=== PATIENT | male | born 1950 | race African-American/Black ===

== ENCOUNTER 2019-07-05 07:43 | Emergency (ER) | payer OTHER ==
[~2019-07-05] VITALS: Ht 175.3 cm; Wt 77.1 kg
[2019-07-05 08:37] LABS: ABSOLUTE NEUTROPHILS 6.1 thou/uL (1.4-8.2); BASOPHILS 0.4 % (0.0-2.0); EOSINOPHILS 7.8 % (0.0-3.0); HEMATOCRIT 33.2 % (42.0-52.0); HEMOGLOBIN 10.9 gm/dL (14.0-18.0); LYMPHOCYTES 11.5 % (24.0-44.0); MCH 31.3 pg (26.0-34.0); MCHC 32.9 g/dL (28.0-37.0); MCV 95.1 fL (80.0-100.0); MONOCYTES 6.3 % (1.0-8.0); PLATELET COUNT 141 thou/uL (150-400); RBC 3.49 mil/uL (4.50-6.00); WBC 8.3 thou/uL (4.0-11.0)
[2019-07-05 08:40] LABS: CALCIUM 9.1 mg/dL (8.5-10.1); CREATININE 5.3 mg/dL (0.7-1.3); MAGNESIUM 1.9 mg/dL (1.8-2.4)
[2019-07-05 08:41] LABS: POTASSIUM 4.2 mmol/L (3.5-5.1)
[2019-07-05] MEDS ORDERED: LIPITOR80 MG PO (09:36)
[2019-07-05] MEDS ORDERED: COMBIGAN EYE DR10 ML OPHTHALMIC (09:36)
[2019-07-05] MEDS ORDERED: TYLENOL325 MG PO (09:36)
[2019-07-05] MEDS ORDERED: COREG6.25 MG PO (09:36)
[2019-07-05] MEDS ORDERED: B12INJ PER TUBE (09:37)
[2019-07-05] MEDS ORDERED: ELIQUIS5 MG PER TUBE (09:38)
[2019-07-05] MEDS ORDERED: LEXAPRO 10 MG T10 M1 PER TUBE (09:38)
[2019-07-05] MEDS ORDERED: NEXIUM40 MG PER TUBE (09:39)
[2019-07-05] MEDS ORDERED: FOLIC ACID1 MG PER TUBE (09:39)
[2019-07-05] MEDS ORDERED: GLYCOPYRROLATE 22 M1 PER TUBE (09:39)
[2019-07-05] MEDS ORDERED: LUMIGAN2.5 M1 OP (09:40)
[2019-07-05] MEDS ORDERED: LEVEMIR100 UNIT/1 (09:40)
[2019-07-05] MEDS ORDERED: NOVOLOG100 UNIT/1 SUBQ (09:41)
[2019-07-05] MEDS ORDERED: SINEMET 25-1001 EAC1 PER TUBE (09:41)
[2019-07-05] MEDS ORDERED: VALPROIC ACID1 ML PER TUBE (09:42)
[2019-07-05 14:09] VITALS: BP 125/60
--- NOTE | 2019-07-07 13:25 | EKG ---
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
== END 2019-07-05 15:14 | disposition home or self-care (01) ==
LOC: ER 07:43
PROVIDERS: Emergency Medicine
DX: E11.649 Type 2 diabetes mellitus with hypoglycemia without coma (principal); I10 Essential (primary) hypertension; Z88.2 Allergy status to sulfonamides; Z88.6 Allergy status to analgesic agent; Z43.1 Encounter for attention to gastrostomy; Z86.73 Personal history of transient ischemic attack (TIA), and cerebral infarction without residual deficits; Z79.4 Long term (current) use of insulin

== ENCOUNTER 2019-07-16 08:10 | Emergency (ER) | payer OTHER ==
[~2019-07-16] VITALS: Ht 152.4 cm; Wt 76.2 kg
--- NOTE | ~2019-07-16 | EMS ---
[address] [address] EMS Patient Care Report Name: MARY ANN AGUIRRE Room #: REG LOUIE Cote#: [id number] Admission: 07/16/19 Attend Phys: Discharge: Date of : 48 Report #: [id number] THIS REPORT FOR: //name// Report Transmitted: 07/16/2019 07:31 EMS Care Summary [place], [place]/[facility] Incident [id number] @ 07/16/2019 07:28 Incident Location [id number] [place] [address] Patient MARY ANN AGUIRRE Male, 68 Years 1950 Patient Address [address] [place], [place] [id number] Patient History Congestive Heart Failure (CHF),Diabetes,Hypertension,Parkinson's Disease,Gastro-Esophageal Reflux Disease (GERD),End Stage Renal Disease (ESRD),Anemia, Patient Allergies Aspirin,Sulfa, Patient Medications Lumigan, Lexapro, Cyanocobalamin Co57, Eliquis, Tylenol, Carvedilol, Atorvastatin, Levemir, Chief Complaint HYPOGLYCEMIA Disposition Transported No Lights/[place] Dispatch Reason Unconscious/Fainting Transported To [facility] [address] [place] [address] EMS Patient Care Report Name: MARY ANN AGUIRRE Room #: REG LOUIE Cote#: [id number] Admission: 07/16/19 Attend Phys: Discharge: Date of : 48 Report #: [id number] M28 ARRIVES TO FIND 68 Y/O M PT, UNRESPONSIVE. ASSESSMENTS AND TREATMENTS NOTED. PT MOVED TO COT VIA DRAWSHEET METHOD. PT MOVED TO AMBULANCE. PT TRANSPORTED. M28 ARRIVES AT DESTINATION. PT MOVED TO ROOM IN ED. PT MOVED TO BED IN ROOM VIA DRAWSHEET METHOD. PT CARE TRANSFERRED. M28 RETURNS TO SERVICE. Initial Vitals @07:38P: 97,BP: 202/100,CO: 1,SpO2: 91, @PTAGlucose: 31, @07:36P: 100,R: 14,BP: 222/125,Pain: 0/10,GCS: 3,Glucose: 50,SpO2: 88,Revised Trauma: 8, @07:55P: 92,R: 16,BP: 119/76,Pain: 0/10,GCS: 7,Glucose: 101,CO: 5,SpO2: 98,Revised Trauma: 10, @08:01P: 87,R: 16,BP: 100/56,Pain: 0/10,GCS: 8,CO: 0,SpO2: 100,Revised Trauma: 10, @07:43P: 99,R: 16,BP: 194/98,Pain: 0/10,GCS: 3,CO: 0,SpO2: 100,Revised Trauma: 8, Assessments @07:36MENTAL:Unresponsive,SKIN:Diaphoresis,HEENT:LUNG SOUNDS:ABDOMEN:PELVIS//GI:EXTREMITIES:PULSE:NEURO:@07:46MENTAL:SKIN:No Abnormalities,HEENT:Head/Face: No Abnormalities,Eyes: No Abnormalities,Neck/Airway: No Abnormalities,LUNG SOUNDS:General: No Abnormalities,Left Upper: No Abnormalities,Right Upper: No Abnormalities,Left Lower: No Abnormalities,Right Lower: No Abnormalities,ABDOMEN:General: No Abnormalities,Left Upper: No Abnormalities,Right Upper: No Abnormalities,Left Lower: No Abnormalities,Right Lower: No Abnormalities,PELVIS//GI:No Abnormalities,EXTREMITIES:Left Arm: No Abnormalities,Right Arm: No Abnormalities,Left Leg: No Abnormalities,Right Leg: No Abnormalities,PULSE:NEURO:No Abnormalities, Impression Diabetic Hypoglycemia Procedures @07:36ALS AssessmentResponse: UnchangedSucceeded@07:43Dextrose 10% - 100 Milliliters (ml) - Intravenous (IV)Response: Improved@07:42Saline Lock 0cc (20 ga) Site: Forearm-LeftResponse: UnchangedSucceeded@07:40Saline Lock 0cc (18 ga) Site: Forearm-LeftResponse: UnchangedFailed@07:39Saline Lock 0cc (20 ga) Site: Forearm-LeftResponse: UnchangedFailed@07:39Oxygen FlowRate: 15 Device: Non Re-breather Mask (NRB) Response: ImprovedSucceeded Timeline PIPE LINE REPAIRER,BP: / M,PULSE: ,RR: R,SPO2: Ox,ETCO2: ,B,PAIN: ,GCS: , 07:26,Call Received 07:26,Dispatch Notified [address] [address] EMS Patient Care Report Name: MARY ANN AGUIRRE Room #: REG LOUIE Cote#: [id number] Admission: 07/16/19 Attend Phys: Discharge: Date of : 48 Report #: [id number] 07:28,Dispatched 07:29,En Route 07:32,On Scene 07:35,At Patient 07:36,ALS Assessment,Response: UnchangedSucceeded, 07:36,BP: 222/125 M,PULSE: 100,RR: 14 R,SPO2: 88 Ox,ETCO2: ,B,PAIN: 0,GCS: 3, 07:38,BP: 202/100 M,PULSE: 97,RR: R,SPO2: 91 Ox,ETCO2: ,BG: ,PAIN: ,GCS: , 07:39,Saline Lock 0cc 20 ga Site: Forearm-Left,Response: UnchangedFailed, 07:39,Oxygen FlowRate: 15 Device: Non Re-breather Mask (NRB) Response: ImprovedSucceeded, 07:40,Saline Lock 0cc 18 ga Site: Forearm-Left,Response: UnchangedFailed, 07:42,Saline Lock 0cc 20 ga Site: Forearm-Left,Response: UnchangedSucceeded, 07:43,Dextrose 10% - 100 Milliliters (ml) - Intravenous (IV),Response: Improved 07:43,BP: 194/98 M,PULSE: 99,RR: 16 R,SPO2: 100 Ox,ETCO2: ,BG: ,PAIN: 0,GCS: 3, 07:55,BP: 119/76 M,PULSE: 92,RR: 16 R,SPO2: 98 Ox,ETCO2: ,B,PAIN: 0,GCS: 7, 08:01,Depart Scene 08:01,BP: 100/56 M,PULSE: 87,RR: 16 R,SPO2: 100 Ox,ETCO2: ,BG: ,PAIN: 0,GCS: 8, 08:04,At Destination 08:15,Call Closed Disclaimer v1.1 Copyright 2019 [employer] This EMS Care Summary contains data elements from the applicable legal record (which may be displayed differently). It is designed to provide pertinent information for the following purposes: continuity of care, clinical quality, and state data reporting. The complete legal record is available to ED staff and administrators of the receiving hospital in [facility]s Patient Tracker. All data is provided "as is."
[~2019-07-16 08:10] MED LIST: B12INJ PER TUBE; COMBIGAN EYE DR10 ML OPHTHALMIC; COREG6.25 MG PO; ELIQUIS5 MG PER TUBE; FOLIC ACID1 MG PER TUBE; GLYCOPYRROLATE 22 M1 PER TUBE; LEVEMIR100 UNIT/1; LEXAPRO 10 MG T10 M1 PER TUBE; LIPITOR80 MG PO; LUMIGAN2.5 M1 OP; NEXIUM40 MG PER TUBE; NOVOLOG100 UNIT/1 SUBQ; SINEMET 25-1001 EAC1 PER TUBE; TYLENOL325 MG PO; VALPROIC ACID1 ML PER TUBE
[2019-07-16 08:29] LABS: BASOPHILS 0.2 % (0.0-2.0); EOSINOPHILS 6.4 % (0.0-3.0); HEMATOCRIT 31.8 % (42.0-52.0); HEMOGLOBIN 10.5 gm/dL (14.0-18.0); LYMPHOCYTES 7.7 % (24.0-44.0); MCH 30.9 pg (26.0-34.0); MCHC 33.1 g/dL (28.0-37.0); MCV 93.4 fL (80.0-100.0); MONOCYTES 4.4 % (1.0-8.0); PLATELET COUNT 143 thou/uL (150-400); POLYS 81.3 % (36.0-66.0); RDW 15.9 % (10.5-14.5); WBC 4.9 thou/uL (4.0-11.0)
[2019-07-16 08:34] LABS: ANION GAP 9 mmol/L (7-16); BUN 40 mg/dL (7-18); CHLORIDE 102 mmol/L (98-107); CO2 26 mmol/L (21-32); CREATININE 5.1 mg/dL (0.7-1.3); GLUCOSE 65 mg/dL (74-106); POTASSIUM 4.2 mmol/L (3.5-5.1); SODIUM 137 mmol/L (136-145)
[2019-07-16 08:43] LABS: TROPONIN-I <0.06 ng/mL (<0.06)
[2019-07-16 10:29] LABS: URINE BLOOD 3+ (Negative); URINE CLARITY SL CLOUDY; URINE GLUCOSE-RANDOM* NEGATIVE (Negative); URINE KETONES TRACE (Negative); URINE LEUKOCYTES-REFLEX TRACE (Negative); URINE NITRITE-REFLEX NEGATIVE (Negative); URINE PROTEIN (DIPSTICK) 2+ (Negative); URINE SPECIFIC GRAVITY 1.025 (1.005-1.035); URINE UROBILINOGEN 0.2 E.U./dl (0.2-1.0)
[2019-07-16 10:35] LABS: ICTOTEST (BILI CONFIRMATORY) Negative (Negative); URINE BILIRUBIN NEGATIVE (Negative); URINE COLOR DARK YELLOW
[2019-07-16 10:38] LABS: AMP/METHAMP Negative (Negative); BARBITURATES Negative (Negative); BENZODIAZEPINES Negative (Negative); COCAINE Negative (Negative); METHADONE Negative (Negative); OPIATES Negative (Negative); PCP Negative (Negative)
[2019-07-16 10:48] LABS: AMORPHOUS URATES Few /LPF (None Seen); BACTERIA-REFLEX 1-9 Few /HPF (None Seen); CASTS None Seen /LPF (None Seen); SQUAMOUS 0-3 Few /LPF (0-3); URINE WBC-REFLEX 0-5 Rare /HPF (0-5)
--- NOTE | 2019-07-16 13:32 | EKG ---
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
[2019-07-16 13:50] VITALS: BP 132/71
== END 2019-07-16 13:52 | disposition home or self-care (01) ==
LOC: ER 08:10
PROVIDERS: Emergency Medicine
DX: E16.2 Hypoglycemia, unspecified (principal); Z88.2 Allergy status to sulfonamides; Z88.8 Allergy status to other drugs, medicaments and biological substances

== ENCOUNTER 2019-12-04 22:52 | Emergency (ER) | payer OTHER ==
[~2019-12-04] VITALS: Ht 175.3 cm; Wt 77.1 kg
[2019-12-04 23:40] LABS: ABSOLUTE NEUTROPHILS 2.5 thou/uL (1.4-8.2); BASOPHILS 0.7 % (0.0-2.0); EOSINOPHILS 10.7 % (0.0-3.0); HEMATOCRIT 38.3 % (42.0-52.0); HEMOGLOBIN 12.4 gm/dL (14.0-18.0); LYMPHOCYTES 19.1 % (24.0-44.0); MCH 31.6 pg (26.0-34.0); MCHC 32.3 g/dL (28.0-37.0); MCV 97.8 fL (80.0-100.0); PLATELET COUNT 155 thou/uL (150-400); POLYS 62.5 % (36.0-66.0); RBC 3.91 mil/uL (4.50-6.00); RDW 15.3 % (10.5-14.5)
[2019-12-04 23:43] LABS: CALCIUM 8.6 mg/dL (8.5-10.1); CREATININE 11.7 mg/dL (0.7-1.3); POTASSIUM 4.7 mmol/L (3.5-5.1)
[2019-12-04 23:45] LABS: APTT 30.6 Seconds (24.5-32.8); INR 1.2
[2019-12-05] MEDS ORDERED: LEVEMIR100 UNIT/2 SUBQ (00:34)
[2019-12-05] MEDS ORDERED: LUMIGAN2.5 M1 OP (00:35)
[2019-12-05] MEDS ORDERED: RENVELA0.8 GM PO (00:36)
[2019-12-05 02:10] VITALS: BP 129/72
== END 2019-12-05 02:13 ==
LOC: ER 22:52
PROVIDERS: Emergency Medicine
DX: E11.649 Type 2 diabetes mellitus with hypoglycemia without coma (principal); N18.6 End stage renal disease; I12.0 Hypertensive chronic kidney disease with stage 5 chronic kidney disease or end stage renal disease; E11.22 Type 2 diabetes mellitus with diabetic chronic kidney disease; E78.5 Hyperlipidemia, unspecified; K21.9 Gastro-esophageal reflux disease without esophagitis; G20 Parkinson's disease; Z79.4 Long term (current) use of insulin; Z99.2 Dependence on renal dialysis; Z88.2 Allergy status to sulfonamides; Z88.6 Allergy status to analgesic agent; W05.0XXA Fall from non-moving wheelchair, initial encounter; Y93.89 Activity, other specified; Y92.098 Other place in other non-institutional residence as the place of occurrence of the external cause; Y99.8 Other external cause status

== ENCOUNTER 2020-06-09 16:38 | Inpatient (IN) | payer OTHER ==
[~2020-06-09] VITALS: Ht 172.7 cm; Wt 62.6 kg
[2020-06-09] VITALS (20 sets, daily range): BP systolic 67–140; BP diastolic 27–65
--- NOTE | ~2020-06-09 | EMS ---
[address] [address] EMS Patient Care Report Name: MARY ANN AGUIRRE Room #: 241-P ADM IN M.R.#: [id number] Admission: 06/09/20 Attend Phys: Tabatha Franz Discharge: Date of : 48 Report #: [id number] THIS REPORT FOR: //name// Report Transmitted: 06/10/2020 04:44 EMS Care Summary [place], [place]/[facility] Incident [id number] @ 06/09/2020 15:57 Incident Location [address] [place] [address] Patient MARY ANN AGUIRRE Male, 69 Years 1950 Patient Address [address] [place] [address] Patient History Congestive Heart Failure (CHF),Diabetes,Hypertension (HTN),Stroke/CVA,Parkinson's Disease,Hyperlipidemia,Gastro-Esophageal Reflux Disease (GERD),End Stage Renal Disease (ESRD),Anemia,Dysphagia,Dialysis,Type 2 Diabetes, Patient Allergies Aspirin,Sulfa, Patient Medications Coreg, Lipitor, Folic acid, Apixaban, Lexapro, Lumigan, Eliquis, Atorvastatin, Sinemet, Renvela, Carvedilol, Insulin, Chief Complaint Fever, vomiting, hypotension Disposition Transported Lights/[place] Dispatch Reason Sick Person Transported To [address] [address] EMS Patient Care Report Name: MARY ANN AGUIRRE Room #: 241-P ADM IN [facility].#: [id number] Admission: 06/09/20 Attend Phys: Tabatha Renteria Leeann Discharge: Date of : 48 Report #: [id number] Narrative Called to the scene for a sick. Upon arrival, pt was brought to the front door by [place] staff. They reported he was lethargic, hypotensive, vomited x 1 with a fever. He has been getting worse for a few weeks but today he is now unable to communicate. They requested transport to the [place], I advised them we would have to go somewhere closer. He was moved to the EMS cot and loaded into the ambulance w/o incident. Vials obtained. O2 via NC. 18g IV with 500cc NS hung. 4 Lead. O2 changed to NRB. Vitals repeated. En route: pt SaO2 improved. RR to [facility]. Arrived: pt taken to ER #12, pt care & report to ER staff. Initial Vitals @16:12P: 59,SpO2: 83, @16:21P: 98,SpO2: 39, @16:28P: 117,SpO2: 74, @16:19P: 45,SpO2: 77, @16:27P: 135,SpO2: 11, @16:24P: 37,SpO2: 24, @16:24P: 120,R: 20,BP: 52/36,Pain: 0/10,GCS: 8,Glucose: 383,SpO2: 90,Revised Trauma: 8,[place] Suspected: false @16:12P: 120,R: 24,BP: 66/41,Pain: 0/10,GCS: 8,Glucose: 400,SpO2: 81,Revised Trauma: 8, @16:31P: 116,SpO2: 60, @16:25P: 38,SpO2: 18, @16:14P: 37,SpO2: 92, @16:22P: 27,SpO2: 28, Assessments @16:08MENTAL:Other,Person Oriented,SKIN:Other,HEENT:LUNG SOUNDS:General: Vomiting,ABDOMEN:General: Vomiting,PELVIS//GI:EXTREMITIES:Left Arm: Other,Left Arm: Paralysis,Left Leg: Paralysis,Right Arm: No Abnormalities,Right Leg: No Abnormalities,PULSE:Radial: Absent,Femoral: 1+ Thready,NEURO: Impression Altered Mental Status Procedures @16:08ALS AssessmentResponse: UnchangedSucceeded@16:14Oxygen FlowRate: 6 Device: Nasal Cannula (NC) Response: ImprovedSucceeded@16:20Oxygen FlowRate: 15 Device: Non Re-breather Mask (NRB) Response: ImprovedSucceeded@16:15Normal Saline (.9% NaCl) 50cc () Site: Forearm-RightResponse: Unchanged@16:10StretcherResponse: Unchanged@16:133-Lead ECGResponse: UnchangedSucceeded Timeline 15:56,Call Received 15:56,Dispatch Notified [address] [address] EMS Patient Care Report Name: MARY ANN AUGIRRE Room #: 241-P [facility] IN .R.#: [id number] Admission: 06/09/20 Attend Phys: Tabatha Franz Discharge: Date of : 48 Report #: [id number] 15:57,Dispatched 15:57,En Route 16:01,On Scene 16:08,At Patient 16:08,ALS Assessment,Response: UnchangedSucceeded, 16:10,Stretcher,Response: Unchanged 16:12,BP: / M,PULSE: 59,RR: R,SPO2: 83 Ox,ETCO2: ,BG: ,PAIN: ,GCS: , 16:12,BP: 66/41 M,PULSE: 120,RR: 24 R,SPO2: 81 Ox,ETCO2: ,B,PAIN: 0,GCS: 8, 16:13,3-Lead ECG,Response: UnchangedSucceeded, 16:14,Oxygen FlowRate: 6 Device: Nasal Cannula (NC) Response: ImprovedSucceeded, 16:14,BP: / M,PULSE: 37,RR: R,SPO2: 92 Ox,ETCO2: ,BG: ,PAIN: ,GCS: , 16:15,Normal Saline (.9% NaCl) 50cc Site: Forearm-Right,Response: Unchanged 16:19,BP: / M,PULSE: 45,RR: R,SPO2: 77 Ox,ETCO2: ,BG: ,PAIN: ,GCS: , 16:20,Oxygen FlowRate: 15 Device: Non Re-breather Mask (NRB) Response: ImprovedSucceeded, 16:21,BP: / M,PULSE: 98,RR: R,SPO2: 39 Ox,ETCO2: ,BG: ,PAIN: ,GCS: , 16:22,BP: / M,PULSE: 27,RR: R,SPO2: 28 Ox,ETCO2: ,BG: ,PAIN: ,GCS: , 16:24,BP: / M,PULSE: 37,RR: R,SPO2: 24 Ox,ETCO2: ,BG: ,PAIN: ,GCS: , 16:24,BP: 52/36 M,PULSE: 120,RR: 20 R,SPO2: 90 Ox,ETCO2: ,B,PAIN: 0,GCS: 8, 16:25,BP: / M,PULSE: 38,RR: R,SPO2: 18 Ox,ETCO2: ,BG: ,PAIN: ,GCS: , 16:26,Depart Scene 16:27,BP: / M,PULSE: 135,RR: R,SPO2: 11 Ox,ETCO2: ,BG: ,PAIN: ,GCS: , 16:28,BP: / M,PULSE: 117,RR: R,SPO2: 74 Ox,ETCO2: ,BG: ,PAIN: ,GCS: , 16:31,BP: / M,PULSE: 116,RR: R,SPO2: 60 Ox,ETCO2: ,BG: ,PAIN: ,GCS: , 16:32,At Destination 17:04,Call Closed Disclaimer v1.1 Copyright 2020 [employer] This EMS Care Summary contains data elements from the applicable legal record (which may be displayed differently). It is designed to provide pertinent information for the following purposes: continuity of care, clinical quality, and state data reporting. The complete legal record is available to ED staff and administrators of the receiving hospital in [employer]'s Patient Tracker. All data is provided "as is."
--- NOTE | ~2020-06-09 | EMS ---
[address] [address] EMS Patient Care Report Name: MARY ANN AGUIRRE Room #: 241-P ADM IN M.R.#: [id number] Admission: 06/09/20 Attend Phys: Tabatha Franz Discharge: Date of : 48 Report #: [id number] THIS REPORT FOR: //name// Report Transmitted: 06/10/2020 03:43 EMS Care Summary [place], [place]/[facility] Incident [id number] @ 06/09/2020 15:57 Incident Location [address] [place] [address] Patient MARY ANN AGUIRRE Male, 69 Years 1950 Patient Address [address] [place] [address] Patient History Congestive Heart Failure (CHF),Diabetes,Hypertension (HTN),Stroke/CVA,Parkinson's Disease,Hyperlipidemia,Gastro-Esophageal Reflux Disease (GERD),End Stage Renal Disease (ESRD),Anemia,Dysphagia,Dialysis,Type 2 Diabetes, Patient Allergies Aspirin,Sulfa, Patient Medications Coreg, Lipitor, Folic acid, Apixaban, Lexapro, Lumigan, Eliquis, Atorvastatin, Sinemet, Renvela, Carvedilol, Insulin, Chief Complaint Fever, vomiting, hypotension Disposition Transported Lights/[place] Dispatch Reason Sick Person Transported To [address] [address] EMS Patient Care Report Name: MARY ANN AGUIRRE Room #: 241-P ADM IN [facility].#: [id number] Admission: 06/09/20 Attend Phys: Tabatha Renteria Leeann Discharge: Date of : 48 Report #: [id number] Narrative Called to the scene for a sick. Upon arrival, pt was brought to the front door by [place] staff. They reported he was lethargic, hypotensive, vomited x 1 with a fever. He has been getting worse for a few weeks but today he is now unable to communicate. They requested transport to the [place], I advised them we would have to go somewhere closer. He was moved to the EMS cot and loaded into the ambulance w/o incident. Vials obtained. O2 via NC. 18g IV with 500cc NS hung. 4 Lead. O2 changed to NRB. Vitals repeated. En route: pt SaO2 improved. RR to [facility]. Arrived: pt taken to ER #12, pt care & report to ER staff. Initial Vitals @16:12P: 59,SpO2: 83, @16:21P: 98,SpO2: 39, @16:28P: 117,SpO2: 74, @16:19P: 45,SpO2: 77, @16:27P: 135,SpO2: 11, @16:24P: 37,SpO2: 24, @16:24P: 120,R: 20,BP: 52/36,Pain: 0/10,GCS: 8,Glucose: 383,SpO2: 90,Revised Trauma: 8,[place] Suspected: false @16:12P: 120,R: 24,BP: 66/41,Pain: 0/10,GCS: 8,Glucose: 400,SpO2: 81,Revised Trauma: 8, @16:31P: 116,SpO2: 60, @16:25P: 38,SpO2: 18, @16:14P: 37,SpO2: 92, @16:22P: 27,SpO2: 28, Assessments @16:08MENTAL:Other,Person Oriented,SKIN:Other,HEENT:LUNG SOUNDS:General: Vomiting,ABDOMEN:General: Vomiting,PELVIS//GI:EXTREMITIES:Left Arm: Other,Left Arm: Paralysis,Left Leg: Paralysis,Right Arm: No Abnormalities,Right Leg: No Abnormalities,PULSE:Radial: Absent,Femoral: 1+ Thready,NEURO: Impression Altered Mental Status Procedures @16:08ALS AssessmentResponse: UnchangedSucceeded@16:14Oxygen FlowRate: 6 Device: Nasal Cannula (NC) Response: ImprovedSucceeded@16:20Oxygen FlowRate: 15 Device: Non Re-breather Mask (NRB) Response: ImprovedSucceeded@16:15Normal Saline (.9% NaCl) 50cc () Site: Forearm-RightResponse: Unchanged@16:10StretcherResponse: Unchanged@16:133-Lead ECGResponse: UnchangedSucceeded Timeline 15:56,Call Received 15:56,Dispatch Notified [address] [address] EMS Patient Care Report Name: MARY ANN AGUIRRE Room #: 241-P [facility] IN .R.#: [id number] Admission: 06/09/20 Attend Phys: Tabatha Franz Discharge: Date of : 48 Report #: [id number] 15:57,Dispatched 15:57,En Route 16:01,On Scene 16:08,At Patient 16:08,ALS Assessment,Response: UnchangedSucceeded, 16:10,Stretcher,Response: Unchanged 16:12,BP: / M,PULSE: 59,RR: R,SPO2: 83 Ox,ETCO2: ,BG: ,PAIN: ,GCS: , 16:12,BP: 66/41 M,PULSE: 120,RR: 24 R,SPO2: 81 Ox,ETCO2: ,B,PAIN: 0,GCS: 8, 16:13,3-Lead ECG,Response: UnchangedSucceeded, 16:14,Oxygen FlowRate: 6 Device: Nasal Cannula (NC) Response: ImprovedSucceeded, 16:14,BP: / M,PULSE: 37,RR: R,SPO2: 92 Ox,ETCO2: ,BG: ,PAIN: ,GCS: , 16:15,Normal Saline (.9% NaCl) 50cc Site: Forearm-Right,Response: Unchanged 16:19,BP: / M,PULSE: 45,RR: R,SPO2: 77 Ox,ETCO2: ,BG: ,PAIN: ,GCS: , 16:20,Oxygen FlowRate: 15 Device: Non Re-breather Mask (NRB) Response: ImprovedSucceeded, 16:21,BP: / M,PULSE: 98,RR: R,SPO2: 39 Ox,ETCO2: ,BG: ,PAIN: ,GCS: , 16:22,BP: / M,PULSE: 27,RR: R,SPO2: 28 Ox,ETCO2: ,BG: ,PAIN: ,GCS: , 16:24,BP: / M,PULSE: 37,RR: R,SPO2: 24 Ox,ETCO2: ,BG: ,PAIN: ,GCS: , 16:24,BP: 52/36 M,PULSE: 120,RR: 20 R,SPO2: 90 Ox,ETCO2: ,B,PAIN: 0,GCS: 8, 16:25,BP: / M,PULSE: 38,RR: R,SPO2: 18 Ox,ETCO2: ,BG: ,PAIN: ,GCS: , 16:26,Depart Scene 16:27,BP: / M,PULSE: 135,RR: R,SPO2: 11 Ox,ETCO2: ,BG: ,PAIN: ,GCS: , 16:28,BP: / M,PULSE: 117,RR: R,SPO2: 74 Ox,ETCO2: ,BG: ,PAIN: ,GCS: , 16:31,BP: / M,PULSE: 116,RR: R,SPO2: 60 Ox,ETCO2: ,BG: ,PAIN: ,GCS: , 16:32,At Destination 17:04,Call Closed Disclaimer v1.1 Copyright 2020 [employer] This EMS Care Summary contains data elements from the applicable legal record (which may be displayed differently). It is designed to provide pertinent information for the following purposes: continuity of care, clinical quality, and state data reporting. The complete legal record is available to ED staff and administrators of the receiving hospital in [employer]'s Patient Tracker. All data is provided "as is."
[~2020-06-09 16:38] MED LIST changes: +LEVEMIR100 UNIT/2 SUBQ; +LIPITOR80 MG PER TUBE; -LIPITOR80 MG PO; +RENVELA0.8 GM PO; +TYLENOL325 MG PER TUBE; -TYLENOL325 MG PO
[2020-06-09 16:49] LABS: BE(vivo) -6.4 mmol/L (-2 to +3); HCO3 18.4 mmol/L (22.0-26.0); PCO2 34.7 mmHg (35.0-45.0); PO2 156.6 mmHg (80.0-100.0); pH 7.342 (7.360-7.450); sO2 98.9 % (92.0-98.0)
[2020-06-09 16:58] LABS: BASOPHILS 0.2 % (0.0-2.0); EOSINOPHILS 0.1 % (0.0-3.0); HEMATOCRIT 34.1 % (42.0-52.0); MCHC 32.4 g/dL (28.0-37.0); MCV 95.7 fL (80.0-100.0); PLATELET COUNT 111 thou/uL (150-400); POLYS 92.7 % (36.0-66.0); RBC 3.56 mil/uL (4.50-6.00); RDW 15.7 % (10.5-14.5); WBC 8.7 thou/uL (4.0-11.0)
[2020-06-09 17:31] LABS: URINE BILIRUBIN 1+ (Negative); URINE BLOOD 3+ (Negative); URINE CLARITY CLOUDY; URINE COLOR YELLOW; URINE GLUCOSE-RANDOM* TRACE (Negative); URINE KETONES NEGATIVE (Negative); URINE PROTEIN (DIPSTICK) 3+ (Negative); URINE SPECIFIC GRAVITY 1.025 (1.005-1.035); URINE UROBILINOGEN 0.2 E.U./dl (0.2-1.0)
[2020-06-09 17:32] LABS: ICTOTEST (BILI CONFIRMATORY) Negative (Negative); URINE LEUKOCYTES-REFLEX 2+ (Negative); URINE NITRITE-REFLEX POSITIVE (Negative)
[2020-06-09 17:37] LABS: SQUAMOUS 0-3 Few /LPF (0-3)
[2020-06-09 17:37] LABS: CALCIUM 7.9 mg/dL (8.5-10.1); CREATININE 6.4 mg/dL (0.7-1.3); POTASSIUM 3.3 mmol/L (3.5-5.1)
[2020-06-09 17:38] LABS: URINE RBC 3-10 Few /HPF (0-2)
[2020-06-09 17:39] LABS: CASTS None Seen /LPF (None Seen); CRYSTALS None Seen /LPF (None Seen); TRANSITIONAL EPITHEL CELL 0-3 Few /LPF (None Seen)
[2020-06-09 17:42] LABS: APTT 48.4 Seconds (24.5-32.8); INR 1.3; PROTIME 13.6 Seconds (9.3-11.4)
[2020-06-09 17:44] LABS: ALBUMIN 1.9 g/dL (3.4-5.0); MAGNESIUM 1.8 mg/dL (1.8-2.4); TOTAL BILIRUBIN 0.6 mg/dL (0.2-1.0); TOTAL PROTEIN 5.8 g/dL (6.4-8.2)
[2020-06-09] MEDS ORDERED: ELIQUIS5 MG PER TUBE (18:35)
--- NOTE | 2020-06-09 19:13 | NUR ---
CONSULTED TO PLACE A CENTRAL LINE- THIS PATIENT HAS A LEFT TUNNELLED DIALYSIS LINE SO A RIGHT IJ WAS ATTEMPTED X3 STICKS. UNABLE TO THREAD THE WIRE. THS PATIENT HAS MULTIPLE SCARS FROM PRIOR CENTRAL AND DIALYSIS LINES. PROCEDURE ABORTED AND [address] LIN[address]AC[address] ROUSSEAU AND ER NURSE UPDATED
[2020-06-09] MEDS ORDERED: GLYCOPYRROLATE 22 M1 PER TUBE (19:31)
[2020-06-09] MEDS ORDERED: INSULIN AS100 UNIT/2 SUBQ (19:33)
[2020-06-09] MEDS ORDERED: NEPHRO-VITE RX1 TA1 PO (19:34)
--- NOTE | 2020-06-09 19:35 | NUR ---
LEVOPHRED DRIP TITRATED UP TO 8MCG AT TIME OF TRANSFER TO THE ICU.
[2020-06-09 20:44] LABS: BE(vivo) -8.3 mmol/L (-2 to +3); HCO3 17.1 mmol/L (22.0-26.0); PCO2 34.8 mmHg (35.0-45.0); PO2 87.2 mmHg (80.0-100.0); pH 7.309 (7.360-7.450); sO2 95.9 % (92.0-98.0)
[2020-06-09 20:48] LABS: HEMATOCRIT 35.1 % (42.0-52.0); MCH 30.5 pg (26.0-34.0); MCHC 31.5 g/dL (28.0-37.0); PLATELET COUNT 106 thou/uL (150-400); RBC 3.62 mil/uL (4.50-6.00); RDW 15.9 % (10.5-14.5); WBC 20.7 thou/uL (4.0-11.0)
[2020-06-09 21:01] LABS: CALCIUM 8.3 mg/dL (8.5-10.1); CREATININE 6.6 mg/dL (0.7-1.3); POTASSIUM 3.5 mmol/L (3.5-5.1)
[2020-06-09 21:08] LABS: ABSOLUTE NEUTROPHILS 17.4 thou/uL (1.4-8.2); ANISOCYTOSIS 1+
--- NOTE | 2020-06-09 23:11 | NUR ---
ASSUMED CARE OF PATIENT FROM ER AT 1930. PATIENT ON LEVO, VANCO. SEPSIS PROTOCOL INITIATED. DR COELLO AND DR KUMAR CONSULTED. DR COELLO TO BEDSIDE TO PLACE CENTRAL LINE, UNABLE TO PLACE. ORDERS TO PLACE IN IR TOMORROW ANTICIPATED. INSULIN GTT STARTED PER PROTOCOL. RT STARTED PATIENT ON OPTIFLOW. PATIENT RESTING AT THIS TIME. PRESSURE ULCER NOTED ON SACRUM. PICS TO BE TAKEN. POC GOALS ESTABLISHED. WILL CONTINUE TO MONITOR.
[2020-06-10] VITALS (85 sets, daily range): BP systolic 79–150; BP diastolic 40–89
[2020-06-10 06:02] LABS: CALCIUM 7.9 mg/dL (8.5-10.1); CREATININE 6.4 mg/dL (0.7-1.3); POTASSIUM 3.6 mmol/L (3.5-5.1)
[2020-06-10 06:09] LABS: HEMATOCRIT 35.1 % (42.0-52.0); MCH 30.2 pg (26.0-34.0); MCHC 31.2 g/dL (28.0-37.0); MCV 96.8 fL (80.0-100.0); PLATELET COUNT 128 thou/uL (150-400); RBC 3.63 mil/uL (4.50-6.00); WBC 22.1 thou/uL (4.0-11.0)
--- NOTE | 2020-06-10 08:26 | EKG ---
[facility] [place] [address] ELECTROCARDIOGRAM REPORT Name: MARY ANN AGUIRRE Room #: 241- ADM IN M.R.#: [id number] Admission: 06/09/20 Attend Phys: Tabatha Franz Discharge: Date of : 48 Report #: [id number] THIS REPORT FOR: cc: MARIELA - Family physician unknown FAM - Family physician unknown Wilfredo Esparza MD [facility] THIS REPORT FOR: //name// [facility] ED Test Date: 2020-06-09 Test Time: 17:05:06 Pat Name: MARY ANN AGUIRRE Department: Room: [facility] Gender: M Director Of Cardiac Rehabilitation: jackelin : 1950 Requested By: Steve Matos Order Number: [id number] MD: Wilfredo Esparza Measurements Intervals [place] Rate: 110 P: 49 ND: 168 QRS: 2 QRSD: 76 T: 88 QT: 364 QTc: 493 Interpretive Statements Sinus tachycardia Abnormal R-wave progression, early transition Nonspecific ST and T wave abnormality Borderline prolonged QT interval Compared to ECG 07/16/2019 08:36:54 Nonspecific change in the ST and T wave segments Electronically Signed On 06-10-2020 8:26:24 CDT by Wilfredo Esparza [email or web address] <ELECTRONICALLY SIGNED> By: Wilfredo Esparza MD, [facility] 06/10/20 0826 170 04 Wilfredo Esparza MD, FAC /EPI
[2020-06-10 08:45] LABS: ABSOLUTE NEUTROPHILS 19.9 thou/uL (1.4-8.2); ANISOCYTOSIS 1+; METAMYELOCYTES 3 %; MYELOCYTES 1 %
--- NOTE | 2020-06-10 09:30 | NUR ---
WOUND CARE CONSULT PER COVID ISOLATION PRECAUTIONS VIEWED PHOTO OF SACRAL/BUTTOCKS WOUNDS W/ ENGLISH FACULTY MEMBER Lizzie WILEY BUTTOCKS CHEEK AND SACRAL AREA WOUND OPEN, APPEARS POSSIBLE SHEARING BUT CAN NOT R/O PRESSURE INJURY STAGE 2, SCANT BLEEDING NOTED, NO S/S INFECTION, REMAINS IN ICU RECOMMENDATIONS; ZGUARD DAILY AND PRN, COVER W/ SACRAL FOAM DRSG, PRESSURE RELIEF, OFF LOADING,TURN AT LEAST Q 2HOURS ENGLISH FACULTY MEMBER AWARE
--- NOTE | 2020-06-10 12:07 | NUR ---
chart review. bedside nurse passed on that nurses not supposed to give report to facility per icu supervisor assembly room. cm let her know its his home and cm would provided update to [facility]. unable to visit with glennydax pending, on optiflow oxygen. cm visited with son glenny via phone call. son reported lives at [facility] for about a year. uses a walker and wheel chair. able to feed himself. goes to dialysis there. been on dialysis for couple years. he was just in [facility] with infection few months ago. per son glenny. [facility] is within [facility]. will cont following as needed for dc needs. information to be sent to [facility]. per son both him and granddaughter are on his dpoa [phone]
--- NOTE | 2020-06-10 13:46 | NUR ---
1345: ATTEMPTED TO CALL [facility] FOR CONSENT FOR LINE AND UPDATE PATIENT STATUS. MESSAGE LEFT TO RETURN CALL HERE AT HOSPITAL.
--- NOTE | 2020-06-10 14:18 | NUR ---
FAXED CLINICAL UPDATE TO [facility] SPOKE WITH ABHISHEK IN ADM SHE RECEIVED UPDATE.
--- NOTE | 2020-06-10 15:00 | NUR ---
CALLED DAUGHTER FOR CONSENT OF PICC LINE PLACEMENT AND UPDATED HER ON THE PATIENT STATUS.
--- NOTE | 2020-06-10 16:22 | NUR ---
4293- DR. CALVERT CALLED IN REGARDS TO IV TEAM UNABLE TO PLACE LINE OF A PICC OR PERIPHERAL LINE. MULTIPLE MEDICATIONS TO BE GIVEN. ADRIEN HAD TALKED TO IR WHO EXPRESSED IV TEAM NEEDS TO ATTEMPT A PICC LINE PRIOR TO IR PLACING A LINE. NURSE EXPRESSED IV TEAM ATTEMPTED A CENTRAL LINE WELL DR. COELLO ATTEMPTED WITHOUT SUCCESS. NURSE AWAITING FURTHER ORDERS.
--- NOTE | 2020-06-10 17:00 | NUR ---
VAT CONSULTED TO PLACE A PICC FOR CL ACCESS FOR THIS PT WHO HAS A LT IJ DIALYSIS CATH. PT HAS MULTIPLE AREAS OF SCARING WHERE HE HAS HAD CENTRAL ACCESS ON HIS CHEST. RENAL DOC ORDERED THE PICC THE PT HAS A POOR PROGNOSIS. ATTEMPTS FOR A RT IJ WERE DONE BY DR COELLO AND JEFF WRIGHT YESTERDAY WITH NO ABILITY TO THREAD THE WIRE. I ATTEMPTED THE LT AXILLARY HIS LT ARM IS CONTRACTED AND NO VIABLE VESSELS AVAILABLE AND CATHETER WOULD NOT THREAD PAST THE HD CATH, ATTEMPT X2 ON EHSAN BUT WIRE WOULD NOT THREAD PAST THE AXILLARY. DID NOT ATTEMPT THE RT IJ IT WAS NOT SUCCESSFUL YESTERDAY.
--- NOTE | 2020-06-10 18:10 | NUR ---
1805 - PATIENT OFF UNIT TO IR
--- NOTE | 2020-06-10 18:33 | NUR ---
ASSUMED CARE AT 0700. ON SEPSIS CONTROL. PATIENT PROGRESSING TOWARDS TO PLAN OF CARE EVIDENCED BY DECREASED LEVOPHED REQUIREMENTS, DECREASED OXYGEN REQUIREMENTS, AND INCREASED TIMES OF ALERTNESS.
[2020-06-11] VITALS (70 sets, daily range): BP systolic 67–138; BP diastolic 34–86
[2020-06-11 06:06] LABS: ABSOLUTE NEUTROPHILS 12.2 thou/uL (1.4-8.2); HEMATOCRIT 27.9 % (42.0-52.0); LYMPHOCYTES 2.1 % (24.0-44.0); MCH 30.7 pg (26.0-34.0); MCHC 32.4 g/dL (28.0-37.0); MCV 94.8 fL (80.0-100.0); MONOCYTES 3.5 % (1.0-8.0); PLATELET COUNT 93 thou/uL (150-400); POLYS 94.4 % (36.0-66.0); RBC 2.94 mil/uL (4.50-6.00); RDW 15.8 % (10.5-14.5); WBC 12.9 thou/uL (4.0-11.0)
--- NOTE | 2020-06-11 06:06 | NUR ---
Assumed care of pt at 1900 last evening. Pt initially with snoring respirations after return from I.R. on 100% NRB mask. Pt transitioned to HFC and now weaned down to 3L O2. Pt increasingly awake and speech slightly easier to understand. Makes simple needs known and follows commands inconsistently. Able to wean Levophed off as well and maintain MAP right around 60. Pt with loose/congested cough but takes much prompting to pulmonary toilet and attempt to clear airway. Lung sounds coarse throughout. Pt has small BMs with each repositioning. Coccys, BL heels and tip of penis all noted to have pressure wounds. Heels elevated off bed and repositioned q2-3 hours, opti rest activated. Pt slowly progressing towards discharge goals, see reasessments for further details. Awaiting 2nd COVID SWAB at this time to clear patient from isolation.
[2020-06-11 06:34] LABS: ALBUMIN 1.9 g/dL (3.4-5.0); CALCIUM 7.8 mg/dL (8.5-10.1); MAGNESIUM 1.9 mg/dL (1.8-2.4); POTASSIUM 4.1 mmol/L (3.5-5.1); TOTAL BILIRUBIN 0.8 mg/dL (0.2-1.0); TOTAL PROTEIN 5.9 g/dL (6.4-8.2)
[2020-06-11 06:41] LABS: CREATININE 4.9 mg/dL (0.7-1.3)
[2020-06-11 09:07] LABS: HEP B SURFACE Ab(ANTI-HBS Non Reactive (()); HEPATITIS B SURFACE AG Negative (Negative)
--- NOTE | 2020-06-11 16:04 | NUR ---
Care assumed this am, pt is asleep with moderate sedation. Is able to follow commands. Denies pain or discomfort. Dialysis nurse was at bedside. Patient started on levophed drip today per protocol. Dr Hatch saw patient, gave order to DC winkler catheter. 1536-Winkler catheter DC'd, patient tolerated procedure. Wound care done. Sacral wound dressing changed as per protocol. Patient tolerated without complications. Pt is able to follow commands. Will continue to monitor.
--- NOTE | 2020-06-11 16:22 | NUR ---
Pt not progressing to plan of care. BP management in place, patient continues on levophed drips, requires oxygen via nasal cannula. Will continue with the current plan of care, wheaning oxygen and levophen as able.
--- NOTE | 2020-06-11 23:44 | NUR ---
PT MOVED TO ROOM 242
[2020-06-12] VITALS (26 sets, daily range): BP systolic 89–126; BP diastolic 36–63
[2020-06-12 05:59] LABS: CREATININE 3.7 mg/dL (0.7-1.3)
--- NOTE | 2020-06-12 09:14 | NUR ---
Continue to recommend nepro at goal of 40ml/hr. Renal has verbally requested to this RD start water flushes of 150ml every 6hr
--- NOTE | 2020-06-12 16:30 | NUR ---
FAXED CLINICAL UPDATE TO [facility] RECEIVED CONFIRMATION AND LEFT MSG WITH BRAD IN ADM. DP TO FOLLOW.
--- NOTE | 2020-06-12 18:41 | NUR ---
SPOKE WITH PATIENT'S SON EARLIER TODAY, PROVIDED UPDATE TO FAMILY. PT ORIENTED TO SELF AND TIME. RESISTANT TO CARES. PT TUBE FEEDING STARTED THIS SHIFT, TOLERATING WELL. PT REQUESTING CHICKEN WINGS, DIET ROOTBEER, & STRAWBERRIES. WHEN ASKED IF PT EATS OR USES PEG TUBE, HE REPORTS PEG TUBE IS USED. FALL PRECAUTIONS IN PLACE. TRINIDAD & CENTRAL LINE PATENT & SECURED.
[2020-06-13 07:00] VITALS: BP 105/66
[2020-06-13 08:00] VITALS: BP 107/58
[2020-06-13 09:00] VITALS: BP 96/55
--- NOTE | 2020-06-13 09:18 | NUR ---
WOUND CARE F/U ASSESSED SACRAL WOUND AND HEEL STATUS W/ ZIPPER LINING FOLDER DEVON, SEVERAL SMALL SCATTERED OPEN SACRAL AREA, APPEARS PARTIALLY DUE TO SHEARING, WOUND BASE RED VIABLE TISSUE, AREA ~ 7CM X 5CM X .3CM, INCONT SMALL AMT STOOL, DUE TO SACRAL BORDER FOAM DRSG STOOL DID NOT GET INTO WOUND, SCANT DRAINAGE, NO S/S INFECTION, BILAT BOGGY HEELS W/ DRY SKIN, OFF LOADING HEELS W/ PILLOW AND SUGGEST PRAFO BOOTS RECOMMENDATIONS; CONT Z GUARD TO SACRAL AREA W/ SACRAL BORDER FOAM DAILY AND PRN, PRAFO BOOTS, OFF LOADING, PRESSURE RELIEF, TURN Q 2HOURS MINIMAL ZIPPER LINING FOLDER AWARE
--- NOTE | 2020-06-13 13:00 | NUR ---
PT RECEIVED FROM ICU. PT IS ON RA. ALERT. TF INFUSING THROUGH PEG TUBE. DRESSINGS TO PERM CATH AND CENTRAL LINE C/D/I. PT IS CONTRACTED TO HIS RIGHT ARM. EDEMA TO BLE. CLEAR ON RA. REGULAR S1/S2 HEART TONES.
[2020-06-13 13:20] VITALS: BP 145/74
[2020-06-13 19:45] VITALS: BP 127/68
[2020-06-14 00:45] VITALS: BP 118/66
--- NOTE | 2020-06-14 03:46 | NUR ---
Assumed pt care at 1900. Pt is alert and confused. No sign of distress noted in pt. Peg tube in place. Pt is stable. Denies pain. Fall precaution in place. Assessment completed and documented on pt. Scheduled meds administered to pt. No acute events overnight. Continue to monitor. No further needs at this time.
[2020-06-14 05:12] VITALS: BP 122/67
[2020-06-14] MEDS ORDERED: MIDODRINE HCL 55 M1 PER TUBE (08:09)
[2020-06-14] MEDS ORDERED: CEFEPIME 1 GM VI1 G2 INJECTION (08:11)
[2020-06-14 08:25] VITALS: BP 129/69
[2020-06-14 12:31] VITALS: BP 129/75
--- NOTE | 2020-06-14 16:15 | NUR ---
CM FAXED ORDERS AND COVID RESULTS TO FACILITY. [facility], AT [facility], SCHEDULED TRANSPORTATION FOR [id number]. PT SON, MARY ANN, NOTIFIED BY CM THAT PT WILL RTRN TO [facility] TODAY. CM LFT VM TO HAVE [facility]POA, [place], TO CONTACT CM FOR UPDATE. PT RN AGREEABLE TO PLAN AND PROVIDED WITH NUMBER TO CALL REPORT TO "[facility]."
--- NOTE | 2020-06-14 17:05 | NUR ---
ASSUMED CARE AT SHIFT CHANGE, ALERT TO SELF ONLY, VSS AND AFEBRILE.ASSESSMENT CHARTED, SR ON THE MONITOR. DISCHARGE INSTRUCTION FAXED TO [facility] SN[facility].WAITING FOR TRANSPORTATION.
--- NOTE | 2020-06-14 20:13 | NUR ---
1920: CHECKED ON RIGHT GROIN SITE WHERE CENTRAL LINE WAS D/C'ED. NO ACTIVE BLEEDING NOTED. DRESSING PLACED BACK. NO DRAINAGE NOTED ON DRESSING. PT APPEARS STABLE AND NO DISTRESS NOTED. WHEELED OUT BY EMS ON STRETCHER WITH PAPERWORK AND PATIENT BELONGINGS SENT WITH THE EMS TEAM. PT GOING BACK TO HIS FACILITY AT [facility].
== END 2020-06-14 19:46 | DRG 871 ==
LOC: ER 16:38 → EROBS 17:53 → ICU 17:53 → 2N 06-13 12:57
PROVIDERS: Emergency Medicine; Internal Medicine Nephrology; Internal Medicine Pulmonary Disease; Pediatrics; ADMIT Hospitalist; ATTEND Hospitalist
PROC: 05HY33Z Insertion of Infusion Device into Upper Vein, Percutaneous Approach (ICD-10-PCS; principal; 2020-06-09)
PROC: B54MZZA Ultrasonography of Right Upper Extremity Veins, Guidance (ICD-10-PCS; principal; 2020-06-09)
PROC: B549ZZA Ultrasonography of Inferior Vena Cava, Guidance (ICD-10-PCS; 2020-06-10)
PROC: B5191ZA Fluoroscopy of Inferior Vena Cava using Low Osmolar Contrast, Guidance (ICD-10-PCS; 2020-06-10)
PROC: 5A1D70Z Performance of Urinary Filtration, Intermittent, Less than 6 Hours Per Day (ICD-10-PCS; 2020-06-10)
PROC: 06H033Z Insertion of Infusion Device into Inferior Vena Cava, Percutaneous Approach (ICD-10-PCS; 2020-06-10)
PROC: B5131ZZ Fluoroscopy of Right Jugular Veins using Low Osmolar Contrast (ICD-10-PCS; 2020-06-10)
PROC: 5A1D70Z Performance of Urinary Filtration, Intermittent, Less than 6 Hours Per Day (ICD-10-PCS; 2020-06-11)
PROC: 5A1D70Z Performance of Urinary Filtration, Intermittent, Less than 6 Hours Per Day (ICD-10-PCS; 2020-06-13)
DX: A41.9 Sepsis, unspecified organism (principal); L89.153 Pressure ulcer of sacral region, stage 3; J18.9 Pneumonia, unspecified organism; N18.6 End stage renal disease; J96.01 Acute respiratory failure with hypoxia; R65.21 Severe sepsis with septic shock; N39.0 Urinary tract infection, site not specified; I50.32 Chronic diastolic (congestive) heart failure; I13.2 Hypertensive heart and chronic kidney disease with heart failure and with stage 5 chronic kidney disease, or end stage renal disease; Z20.828 Contact with and (suspected) exposure to other viral communicable diseases; G20 Parkinson's disease; E11.43 Type 2 diabetes mellitus with diabetic autonomic (poly)neuropathy; E78.5 Hyperlipidemia, unspecified; K21.9 Gastro-esophageal reflux disease without esophagitis; N40.0 Benign prostatic hyperplasia without lower urinary tract symptoms; R65.20 Severe sepsis without septic shock; E11.22 Type 2 diabetes mellitus with diabetic chronic kidney disease; I95.9 Hypotension, unspecified; D69.6 Thrombocytopenia, unspecified; Z86.73 Personal history of transient ischemic attack (TIA), and cerebral infarction without residual deficits; Z88.6 Allergy status to analgesic agent; Z88.2 Allergy status to sulfonamides; Z79.899 Other long term (current) drug therapy
CPT/HCPCS: 10078; 10081; 10203; 27000; 32100

== ENCOUNTER 2020-06-23 12:19 | Emergency (ER) | payer OTHER ==
[~2020-06-23] VITALS: Ht 175.3 cm; Wt 71.9 kg
[~2020-06-23 12:19] MED LIST changes: +CEFEPIME 1 GM VI1 G2 INJECTION; +INSULIN AS100 UNIT/2 SUBQ; +MIDODRINE HCL 55 M1 PER TUBE; +NEPHRO-VITE RX1 TA1 PO
[2020-06-23 12:20] VITALS: BP 90/46
[2020-06-23 12:37] LABS: BE(vivo) -15.2 mmol/L (-2 to +3); HCO3 12.9 mmol/L (22.0-26.0); PCO2 42.5 mmHg (35.0-45.0); PO2 182.9 mmHg (80.0-100.0); sO2 98.7 % (92.0-98.0)
[2020-06-23 13:16] LABS: ABSOLUTE NEUTROPHILS 6.2 thou/uL (1.4-8.2); BASOPHILS 0.3 % (0.0-2.0); EOSINOPHILS 0.3 % (0.0-3.0); MCHC 30.1 g/dL (28.0-37.0); MONOCYTES 1.2 % (1.0-8.0); PLATELET COUNT 178 thou/uL (150-400); POLYS 74.2 % (36.0-66.0); RBC 1.42 mil/uL (4.50-6.00); RDW 16.5 % (10.5-14.5); WBC 8.4 thou/uL (4.0-11.0)
[2020-06-23 13:19] LABS: HEMATOCRIT 14.6 % (42.0-52.0); HEMOGLOBIN 4.4 gm/dL (14.0-18.0)
[2020-06-23 13:44] LABS: ALBUMIN 1.4 g/dL (3.4-5.0); CALCIUM 8.9 mg/dL (8.5-10.1); DIRECT BILIRUBIN 0.1 mg/dL (<0.1-0.2); POTASSIUM 5.3 mmol/L (3.5-5.1); TOTAL BILIRUBIN 0.4 mg/dL (0.2-1.0); TOTAL PROTEIN 4.9 g/dL (6.4-8.2); TROPONIN-I 0.13 ng/mL (<0.06)
[2020-06-23 13:49] LABS: APTT 42.2 Seconds (24.5-32.8); INR 1.4; PROTIME 14.2 Seconds (9.3-11.4)
[2020-06-23 14:08] LABS: BE(vivo) -10.2 mmol/L (-2 to +3); HCO3 14.3 mmol/L (22.0-26.0); PCO2 25.3 mmHg (35.0-45.0); PO2 263.6 mmHg (80.0-100.0); sO2 99.6 % (92.0-98.0)
[2020-06-23 14:12] LABS: ANISOCYTOSIS 1+; MACROCYTES 1+; OVALOCYTES FEW
[2020-06-23 14:13] LABS: SCHISTOCYTES RARE
--- NOTE | 2020-06-23 16:35 | NUR ---
MILLY AT [facility] CALLED FOR AN UPDATE. PROVIDED AN UPDATE ON PT CONDITION.
[2020-06-23 16:38] VITALS: BP 57/28
--- NOTE | 2020-06-24 08:11 | EKG ---
[facility] [place] [address] ELECTROCARDIOGRAM REPORT Name: MARY ANN AGUIRRE Room #: DEP [facility]#: [id number] Admission: 06/23/20 Attend Phys: Discharge: 06/23/20 Date of : 48 Report #: [id number] THIS REPORT FOR: cc: FAM - Family physician unknown FAM - Family physician unknown Baljeet Guajardo MD ~ THIS REPORT FOR: //name// [facility] ED Test Date: 2020-06-23 Test Time: 12:37:22 Pat Name: MARY ANN AGUIRRE Department: Room: [facility] Gender: M Slate Splitter: : 1950 Requested By: Lorraine Aguilar Order Number: [id number] MD: Baljeet Guajardo Measurements Intervals [place]bert Rate: 63 P: 0 WA: 160 QRS: 67 QRSD: 163 T: -31 QT: 445 QTc: 456 Interpretive Statements Sinus bradycardia Right bundle branch block Compared to ECG 06/09/2020 17:05:06 Electronically Signed On 06-24-2020 8:11:13 CDT by Baljeet Guajardo [email or web address] <ELECTRONICALLY SIGNED> By: Baljeet Guajardo MD 06/24/20810 1237 1237 Baljeet Guajardo MD /[email or web address]
== END 2020-06-23 16:53 ==
LOC: ER 12:19 → EROBS 15:28 → ER 16:53
PROVIDERS: Emergency Medicine
DX: I46.9 Cardiac arrest, cause unspecified (principal); Z20.828 Contact with and (suspected) exposure to other viral communicable diseases; D64.9 Anemia, unspecified; J18.9 Pneumonia, unspecified organism; E87.2 Acidosis; E11.22 Type 2 diabetes mellitus with diabetic chronic kidney disease; I13.2 Hypertensive heart and chronic kidney disease with heart failure and with stage 5 chronic kidney disease, or end stage renal disease; I50.9 Heart failure, unspecified; N18.6 End stage renal disease; E11.65 Type 2 diabetes mellitus with hyperglycemia; E78.5 Hyperlipidemia, unspecified; Z99.2 Dependence on renal dialysis; Z88.6 Allergy status to analgesic agent; Z88.2 Allergy status to sulfonamides; Z79.899 Other long term (current) drug therapy